=== PATIENT | female | born 1950 | race Caucasian/White ===

== ENCOUNTER → 2016-08-29 | Outpatient (CLI) | payer MEDICARE, OTHER ==
[~2016-08-29] MED LIST: ARFO15VI3; ATEN-36 PO; BIOT300T6 PO; CHLO500T3; EPIN5DRO BOTH EYES; FLUT1DIS4 IH; FURO40TA70 PO; GABA-215 PO; IVIG IV; LANS30CA44 PO; LEFL20TA PO; LISI-126 PO; MULT-806 PO; OXYC-48 PO; PRAV20TA48 PO; [UNRECOGNIZED DRUG - CODE] PO; [UNRECOGNIZED DRUG - CODE] PO
== END ==
LOC: WC.BC 10:56
DX: Z12.31 Encounter for screening mammogram for malignant neoplasm of breast (principal); N64.59 Other signs and symptoms in breast
CPT/HCPCS: 77063; G0202